=== PATIENT | female | born 1950 | race Asian ===

== ENCOUNTER 2018-03-05 13:24 | Inpatient (IN) | payer MEDICARE ==
[~2018-03-05] VITALS: Ht 154.9 cm; Wt 58.6 kg
[2018-03-05] MEDS ORDERED: KETOROLAC TROMETHAMINE 60 MG/2 ML VIAL IM ONE (15:00)
[2018-03-05] MEDS ORDERED: MORPHINE SULFATE 4 MG/ML SYRINGE IVP ONE (18:45)
[2018-03-05] MEDS ORDERED: ONDANSETRON HCL 4 MG/2 ML VIAL IVP ONE (18:45)
[2018-03-05 18:59] LABS: BASOPHILS % (AUTO) 0.2 % (0.0-2.0); EOSINOPHILS % (AUTO) 0 % (1.0-6.0); HEMATOCRIT 41.4 % (36-46); HEMOGLOBIN 14.3 g/dL (12.0-16.0); LYMPHOCYTES # (AUTO) 1.5 K/uL (1.0-4.8); LYMPHOCYTES % (AUTO) 8.7 % (22.0-44.0); MEAN CORPUSCULAR HEMOGLOBIN 29.4 pg (26.0-34.0); MEAN CORPUSCULAR HGB CONC 34.5 G/dL (31.0-37.0); MEAN CORPUSCULAR VOLUME 85 fL (80-100); MONOCYTES # (AUTO) 0.6 K/uL (0.1-1.0); MONOCYTES % (AUTO) 3.3 % (2.0-9.0); NEUTROPHILS # (AUTO) 15.1 K/uL (1.8-7.7); PLATELET COUNT (AUTO) 377 K/uL (150-450); RED BLOOD CELL COUNT(AUTO) 4.86 MIL/uL (4.00-5.20); RED CELL DISTRIBUTION WIDTH 13.4 % (11.5-14.5)
[2018-03-05 19:01] LABS: NEUTROPHILS % (AUTO) 87.8 % (40.0-70.0)
[2018-03-05 19:10] LABS: ANION GAP 9 mmol/L (8-16); CALCIUM, TOTAL 8.9 mg/dL (8.8-10.5); CARBON DIOXIDE 27 mmol/L (22-29); CHLORIDE 101 mmol/L (98-107); CREATININE 0.62 mg/dL (0.60-1.30); GLOMERULAR FILTR. RATE CALC > 60 mL/min (>60); GLUCOSE,RANDOM 99 mg/dL (70-110); POTASSIUM 3.3 mmol/L (3.5-5.1); SODIUM SERUM 137 mmol/L (136-145); UREA NITROGEN, BLOOD 11 mg/dL (7-18)
[2018-03-05 19:16] LABS: ALANINE AMINOTRANSFERASE 34 U/L (12-78); ALBUMIN 3.7 g/dL (3.4-5.0); ALKALINE PHOSPHATASE 73 U/L (46-116); ASPARTATE AMINOTRANSFERASE 22 U/L (15-37); BILIRUBIN,TOTAL 0.4 mg/dL (0.1-1.0); TOTAL PROTEIN, SERUM 8.8 g/dL (6.4-8.2)
[2018-03-05 19:29] LABS: INR 0.9 (0.9-1.1); PROTHROMBIN TIME 9.7 SEC (9.4-11.6)
[2018-03-05] MEDS ORDERED: 0.9% SODIUM CHLORIDE 10 ML SYRINGE IVP PRN ×2 (20:30→23:30)
[2018-03-05] MEDS ORDERED: ACETAMINOPHEN 325 MG TABLET PO PRN (20:30)
[2018-03-05] MEDS ORDERED: ONDANSETRON HCL 4 MG/2 ML VIAL IVP PRN ×2 (20:30→23:30)
[2018-03-05] MEDS ORDERED: MORPHINE SULFATE 4 MG/ML SYRINGE IVP PRN (20:30)
[2018-03-05 20:54] VITALS: BP 138/75
[2018-03-05] MEDS ORDERED: PNEUMOCOCCAL VACCINE POLYVALENT 0.5 ML VIAL [PPSV23] IM ONE (22:15)
[2018-03-05] MEDS ORDERED: INFLUENZA VIRUS VACCINE QVS 2017-18 (3YR+)/PF 60 MCG/0.5 ML SYRINGE IM ONE (22:15)
[2018-03-05] MEDS ORDERED: ZOLPIDEM TARTRATE 5 MG TABLET PO PRN (23:30)
[2018-03-05] MEDS: HEPARIN SODIUM,PORCINE 5,000 UNITS/ML VIAL SQ SCH (23:49)
[2018-03-06] VITALS (7 sets, daily range): BP systolic 102–143; BP diastolic 60–80
[2018-03-06 06:05] LABS: BASOPHILS % (AUTO) 0.4 % (0.0-2.0); EOSINOPHILS % (AUTO) 0.3 % (1.0-6.0); HEMATOCRIT 37.4 % (36-46); LYMPHOCYTES # (AUTO) 1.8 K/uL (1.0-4.8); LYMPHOCYTES % (AUTO) 19.5 % (22.0-44.0); MEAN CORPUSCULAR HEMOGLOBIN 29.4 pg (26.0-34.0); MEAN CORPUSCULAR HGB CONC 34.8 G/dL (31.0-37.0); MEAN CORPUSCULAR VOLUME 84 fL (80-100); MONOCYTES # (AUTO) 0.6 K/uL (0.1-1.0); NEUTROPHILS # (AUTO) 6.7 K/uL (1.8-7.7); NEUTROPHILS % (AUTO) 72.8 % (40.0-70.0); PLATELET COUNT (AUTO) 339 K/uL (150-450); RED BLOOD CELL COUNT(AUTO) 4.44 MIL/uL (4.00-5.20); RED CELL DISTRIBUTION WIDTH 13.3 % (11.5-14.5)
[2018-03-06 06:25] LABS: ANION GAP 6 mmol/L (8-16); CALCIUM, TOTAL 8.3 mg/dL (8.8-10.5); CARBON DIOXIDE 29 mmol/L (22-29); CHLORIDE 103 mmol/L (98-107); CREATININE 0.73 mg/dL (0.60-1.30); GLOMERULAR FILTR. RATE CALC > 60 mL/min (>60); GLUCOSE,RANDOM 96 mg/dL (70-110); POTASSIUM 3.7 mmol/L (3.5-5.1); SODIUM SERUM 138 mmol/L (136-145); UREA NITROGEN, BLOOD 10 mg/dL (7-18)
[2018-03-06] MEDS: HEPARIN SODIUM,PORCINE 5,000 UNITS/ML VIAL SQ SCH (08:00)
[2018-03-06] MEDS: PANTOPRAZOLE SODIUM 40 MG/VIAL IVP SCH (08:41)
[2018-03-06] MEDS ORDERED: RINGERS SOLUTION,LACTATED 1,000 ML IV ONE (09:12)
[2018-03-06] MEDS ORDERED: BUPIVACAINE HCL/PF 0.5% 30 ML VIAL ONE (09:12)
[2018-03-06] MEDS ORDERED: BUPIVACAINE HCL/PF 0.25% 30 ML VIAL ONE (09:12)
[2018-03-06] MEDS ORDERED: GUM MASTIC/STORAX/MSAL/ALCOHOL LIQUID 0.67 ML VIAL TP ONE ×2 (09:13→11:13)
[2018-03-06] MEDS ORDERED: MUPIROCIN CALCIUM 2% 22 GM OINTMENT ONE (09:13)
[2018-03-06] MEDS ORDERED: SODIUM CL IRRIG SOLN BAG 0 ML IRRIG ONE (09:40)
[2018-03-06] MEDS ORDERED: HYDROmorphone 2 MG/ML SYRINGE IVP PRN (11:00)
[2018-03-06] MEDS ORDERED: MEPERIDINE-PF 25 MG/ML SYRINGE IVP PRN (11:00)
[2018-03-06] MEDS ORDERED: FentaNYL CITRATE-PF 100 MCG/2 ML VIAL ONE (11:42)
[2018-03-06] MEDS: FentaNYL CITRATE-PF 100 MCG/2 ML VIAL IVP PRN ×2 (11:46→11:59)
[2018-03-06] MEDS ORDERED: ACETAMINOPHEN 1000 MG/ISO-OSM 100 ML IV SCH (12:00)
[2018-03-06] MEDS: MORPHINE SULFATE 4 MG/ML SYRINGE IVP PRN (12:56)
[2018-03-06] MEDS: ACETAMINOPHEN 1000 MG/ISO-OSM 100 ML IV SCH (17:34)
[2018-03-06] MEDS: CeFAZolin 1 GM/DEXTROSE 50 ML IV SCH (18:10)
[2018-03-06] MEDS: OXYGEN THERAPY IH SCH (20:00)
[2018-03-07] MEDS: ACETAMINOPHEN 1000 MG/ISO-OSM 100 ML IV SCH ×2 (01:09→09:05)
[2018-03-07] MEDS: CeFAZolin 1 GM/DEXTROSE 50 ML IV SCH (01:43)
[2018-03-07 04:28] VITALS: BP 100/62
[2018-03-07] MEDS ORDERED: METOCLOPRAMIDE HCL 5 MG/ML 2 ML VIAL IVP ONE (05:50)
[2018-03-07] MEDS ORDERED: GLYCOPYRROLATE 0.2 MG/ML VIAL IM ONE (05:50)
[2018-03-07] MEDS ORDERED: FentaNYL CITRATE-PF 250 MCG/5 ML VIAL IVP ONE (05:50)
[2018-03-07] MEDS ORDERED: ONDANSETRON HCL 4 MG/2 ML VIAL IVP ONE (05:50)
[2018-03-07] MEDS ORDERED: ROCURONIUM BROMIDE 10 MG/ML 5 ML VIAL IVP ONE (05:50)
[2018-03-07] MEDS ORDERED: CefoTEtan DISODIUM 1 GM/VIAL IVP ONE (05:50)
[2018-03-07] MEDS ORDERED: LIDOCAINE HCL/PF 2% 5 ML VIAL IM ONE (05:50)
[2018-03-07] MEDS ORDERED: MIDAZOLAM HCL 2 MG/2 ML VIAL IVP ONE (05:50)
[2018-03-07] MEDS ORDERED: PROPOFOL 1% 20 ML VIAL IVP ONE (05:50)
[2018-03-07] MEDS ORDERED: DEXAMETHASONE SOD PHOS 4 MG/ML VIAL IVP ONE (05:50)
[2018-03-07] MEDS: OXYGEN THERAPY IH SCH (08:00)
[2018-03-07 08:05] VITALS: BP 126/76
[2018-03-07] MEDS: MORPHINE SULFATE 4 MG/ML SYRINGE IVP PRN ×3 (09:04→19:45)
[2018-03-07] MEDS: ENOXAPARIN SODIUM 30 MG/0.3 ML PF SYRINGE SQ SCH ×2 (09:04→19:45)
[2018-03-07] MEDS: PANTOPRAZOLE SODIUM 40 MG/VIAL IVP SCH (09:05)
[2018-03-07 13:31] VITALS: BP 136/74
[2018-03-07 16:39] VITALS: BP 109/70
[2018-03-07 19:58] VITALS: BP 118/71
[2018-03-07] MEDS: HYDROCODONE/ACETAMINOPHEN 5-325 MG TABLET PO PRN (23:32)
[2018-03-07 23:42] VITALS: BP 107/67
[2018-03-08] VITALS (7 sets, daily range): BP systolic 111–130; BP diastolic 57–87
[2018-03-08] MEDS: HYDROCODONE/ACETAMINOPHEN 5-325 MG TABLET PO PRN ×5 (05:41→22:05)
[2018-03-08] MEDS: OXYGEN THERAPY IH SCH (08:00)
[2018-03-08] MEDS: ENOXAPARIN SODIUM 30 MG/0.3 ML PF SYRINGE SQ SCH ×2 (08:45→20:47)
[2018-03-08] MEDS: PANTOPRAZOLE SODIUM 40 MG/VIAL IVP SCH (08:45)
[2018-03-09] MEDS: HYDROCODONE/ACETAMINOPHEN 5-325 MG TABLET PO PRN ×4 (04:39→20:13)
[2018-03-09 07:52] VITALS: BP 113/74
[2018-03-09] MEDS: OXYGEN THERAPY IH SCH ×2 (08:00→20:00)
[2018-03-09] MEDS: PANTOPRAZOLE SODIUM 40 MG/VIAL IVP SCH (08:15)
[2018-03-09] MEDS: ENOXAPARIN SODIUM 30 MG/0.3 ML PF SYRINGE SQ SCH ×2 (08:15→21:07)
[2018-03-09 11:55] VITALS: BP 131/79
[2018-03-09 15:37] VITALS: BP 116/73
[2018-03-09 20:10] VITALS: BP 112/65
[2018-03-09 23:52] VITALS: BP 132/82
[2018-03-10] MEDS: HYDROCODONE/ACETAMINOPHEN 5-325 MG TABLET PO PRN ×5 (01:42→19:11)
[2018-03-10 04:34] VITALS: BP 123/67
[2018-03-10] MEDS: OXYGEN THERAPY IH SCH ×2 (08:00→20:00)
[2018-03-10 08:20] VITALS: BP 119/69
[2018-03-10] MEDS: PANTOPRAZOLE SODIUM 40 MG/VIAL IVP SCH (09:13)
[2018-03-10] MEDS: ENOXAPARIN SODIUM 30 MG/0.3 ML PF SYRINGE SQ SCH ×2 (09:13→20:33)
[2018-03-10 11:49] VITALS: BP 111/57
[2018-03-10 16:04] VITALS: BP 118/77
[2018-03-10 19:33] VITALS: BP 140/81
[2018-03-10 23:12] VITALS: BP 143/86
[2018-03-11] MEDS: HYDROCODONE/ACETAMINOPHEN 5-325 MG TABLET PO PRN ×3 (01:08→16:23)
[2018-03-11 05:45] VITALS: BP 121/77
[2018-03-11 07:48] VITALS: BP 119/78
[2018-03-11] MEDS: OXYGEN THERAPY IH SCH (08:00)
[2018-03-11] MEDS: ENOXAPARIN SODIUM 30 MG/0.3 ML PF SYRINGE SQ SCH (08:41)
[2018-03-11] MEDS: PANTOPRAZOLE SODIUM 40 MG/VIAL IVP SCH (08:41)
[2018-03-11 11:20] VITALS: BP 122/75
[2018-03-11 14:23] VITALS: BP 150/91
[2018-03-11 15:39] VITALS: BP 122/79
[2018-03-11] MEDS ORDERED: ENOX30DI5 SQ (16:12)
== END 2018-03-11 15:40 | disposition home or self-care (01) | DRG 480 ==
LOC: EMS 13:28 → 6N 18:17 → 4E 03-08 08:47
PROVIDERS: ADMIT Internal Medicine; ATTEND Internal Medicine
PROC: 0QS734Z Reposition Left Upper Femur with Internal Fixation Device, Percutaneous Approach (ICD-10-PCS; 2018-03-06)
PROC: 0PSJ34Z Reposition Left Radius with Internal Fixation Device, Percutaneous Approach (ICD-10-PCS; 2018-03-06)
PROC: 0X9H0ZZ Drainage of Left Wrist Region, Open Approach (ICD-10-PCS; 2018-03-06)
PROC: 0Y980ZZ Drainage of Left Femoral Region, Open Approach (ICD-10-PCS; principal; 2018-03-06 10:00)
DX: S52.502A Unspecified fracture of the lower end of left radius, initial encounter for closed fracture (principal); S72.002A Fracture of unspecified part of neck of left femur, initial encounter for closed fracture; M25.00 Hemarthrosis, unspecified joint; W18.30XA Fall on same level, unspecified, initial encounter; W18.39XA Other fall on same level, initial encounter; Y92.481 Parking lot as the place of occurrence of the external cause; Y93.89 Activity, other specified; Y92.89 Other specified places as the place of occurrence of the external cause; Y99.8 Other external cause status; Z28.21 Immunization not carried out because of patient refusal
CPT/HCPCS: 73503; 73552; 83735; 87081; 90471; 96372; 96374; 96375; 97116; 97162; 97165; 97530; 97535; 99285; C1713; C9113; J0131; J0690; J1100; J1650; J1885; J2250; J2270; J2405; J2704; J2765; J3010; J3490; J7120